=== PATIENT | male | born 1930 | race Caucasian/White ===

== ENCOUNTER 2017-11-28 09:20 | Emergency (ER) | payer MEDICARE ==
--- NOTE | 2017-11-28 10:13 | Emergency Department Record ---
History of Present Illness - General Chief complaint: Rash Stated complaint: CELLULITIS FACE AND BOTH LEGS Time Seen by Provider: 11/28/17 10:00 Source: Patient Mode of Arrival: Ambulatory Limitations: No limitations - History of Present Illness Initial comments: The patient has had a rash to his legs for about a month and now it has spread to the area around the L eye minimally. He states it is very itchy at times. There is no hx of unusual plant exposure or new medicines. The patient did go to an 6 days ago and was treated with Keflex for Cellulitis and also did receive a Steroid shot. He denies any fever, pain, nausea or vomiting. MD complaint: Rash Onset/Timin -: Month(s) Hx Tetanus Toxoid Vaccination: Yes Year of Tetanus Vaccination: 2013 Patient Tetanus UTD (within 5 yrs): Yes Location: Face, LLE, RLE Severity: Moderate Quality: Other Associated symptoms: Itching Treatments Prior to Arrival: Antibiotic, OTC topical medication - Related Data Home Medications Medication Instructions Recorded Confirmed Last Taken Cephalexin [Keflex] 500 mg PO TID 11/28/17 11/28/17 11/28/17 Lisinopril [Prinivil] 10 mg PO DAILY 11/28/17 11/28/17 11/28/17 Triamterene/Hydrochlorothiazid 1 udcap PO DAILY 11/28/17 11/28/17 11/28/17 [Dyazide] Previous Rx's Medication Instructions Recorded Prednisone [Prednisone 20Mg] 20 mg PO ASDIR #15 tab 11/28/17 Allergies Allergy/AdvReac Type Severity Reaction Status Date / Time No Known Drug Allergies Allergy Verified 11/28/17 09:46 Travel Screening - Travel/Exposure Within Last 30 Days Have you traveled within the last 30 days?: No - Travel/Exposure Within Last Year Have you traveled outside the [place] in the last year?: No - Additonal Travel Details Have you been exposed to anyone with a communicable illness?: No - Travel Symptoms Symptom Screening: None Review of Systems Constitutional: Denies: Chills, Fever Eyes: Denies: Eye discharge ENT: Denies: Congestion Respiratory: Denies: Cough, Dyspnea Past Medical History - SOCIAL HISTORY Smoking Status: Former smoker Alcohol Use: Occasional Alcohol Use Comment: Wine at dinner Drug Use: None - RESPIRATORY Hx Respiratory Disorders: No - CARDIOVASCULAR Hx Cardio Disorders: Yes Hx Hypertension: Yes - NEURO Hx Neuro Disorders: No - GI Hx GI Disorders: No - Hx Genitourinary Disorders: No - ENDOCRINE Hx Endocrine Disorders: No - MUSCULOSKELETAL Hx Musculoskeletal Disorders: No - PSYCH Hx Psych Problems: No - HEMATOLOGY/ONCOLOGY Hx Hematology/Oncology Disorders: Yes Hx Cancer: Yes (skin) Family Medical History Any Significant Family History?: No Physical Exam - General General Appearance: Alert, Oriented x3, Cooperative, No acute distress - Head Head exam: Atraumatic, Normocephalic, Normal inspection - Eye Eye exam: PERRL, EOMI, Periorbital swelling (There is mild swelling around the L eye with no warmth or tenderness.). negative: Normal appearance, Conjunctival injection - ENT Throat exam: Normal inspection. negative: Tonsillar erythema, Tonsillar exudate - Neck Neck exam: Normal inspection, Full ROM. negative: Tenderness - Respiratory Respiratory exam: Normal lung sounds bilaterally. negative: Respiratory distress - Cardiovascular Cardiovascular Exam: Regular rate, Normal rhythm, Normal heart sounds - Extremities Extremities exam: negative: Normal inspection (There is a scattered macular papular weeping rash to the anterior lower legs R>L. There is no warmth or tenderness.) Course Vital Signs 11/28/17 09:49 Temperature 97.9 F Pulse Rate 63 Respiratory 18 Rate Blood Pressure 167/68 Pulse Ox 96 - Reevaluation(s) Reevaluation #1: The patient is doing well at this time. I did discuss the dermatitis and the fact that I felt it is allergix in origin. He is to stop the keflex and start the Prednisone and Zyrtec. 11/28/17 11:01 Medical Decision Making - Data Complexity MDM Data: Labs Ordered and/or Reviewed - Lab Data Result diagrams: 11/28/17 10:18 11/28/17 10:18 Disposition Disposition: Discharge Clinical Impression: Dermatitis Disposition: Home, Self-Care Condition: (2) Stable Instructions: Acute Rash (ED) Additional Instructions: Please take your home Zyrtec and start the Prednisone tomorrow. Please return to the ER for any worsening symptoms, or pain, fever, or vomiting. Prescriptions: Prednisone [Prednisone 20Mg] 20 mg PO ASDIR #15 tab Forms: Patient Portal Access Time of Disposition: 11:05 Quality - Quality Measures Quality Measures: N/A - Blood Pressure Screening View Details: Yes Does Patient Have Any of the Following: No Blood Pressure Classification: Hypertensive Reading Systolic Measurement: 167 Diastolic Measurement: 68 Screening for High Blood Pressure: < First Hypertensive BP, F/U Documented > [ G8950] First Hypertensive Follow-up Interventions: Referral to alternative/primary care provider.
[2017-11-28 10:23] LABS: BASO % 0.2 % (0-6); EOS % 12.5 % (0-6); GRAN % 59.8 % (47-80); HEMATOCRIT 41.4 % (42.0-52.0); LYMPH % 14.2 % (16-45); MEAN CELL VOLUME 101.2 fl (81-97); MEAN CORPUSCULAR HEMOGLOBIN 34.2 pg (27-33); MEAN CORPUSCULAR HGB CONC 33.8 g/dl (32-36); MEAN PLATELET VOLUME 9.5 fl (7.4-10.4); MONO % 13.3 % (0-9); PLATELET COUNT 211 K/uL (130-400); RED BLOOD COUNT 4.09 M/uL (4.40-5.70); WHITE BLOOD COUNT W/O DIFF 8.6 K/uL (4.2-12.2)
[2017-11-28 10:38] LABS: BLOOD UREA NITROGEN 25 mg/dL (8-23); CREATININE 1.1 mg/dL (0.7-1.2); EST GLOMERULAR FILTRATION RATE > 60 mL/min; TOTAL PROTEIN 6.7 g/dL (6.6-8.7)
[2017-11-28 10:40] LABS: GLUCOSE,RANDOM 81 mg/dL (74-109)
[2017-11-28 10:43] LABS: ALB/GLOB RATIO 1.2 (1.1-1.8); ALBUMIN 3.7 g/dL (4.0-5.0); ALKALINE PHOSPHATASE 77 U/L (40-129); ALT/SGPT 12 U/L (<41); AST/SGOT 18 U/L (10.0-50.0); C-REACTIVE PROTEIN 0.19 mg/dL (<0.5)
[2017-11-28] MEDS: METHYLPREDNISOLONE PF 125MG/VIAL IM ONE (11:02)
== END 2017-11-28 11:12 | disposition home or self-care (01) ==
LOC: ER 09:20
DX: L30.8 Other specified dermatitis (principal); I10 Essential (primary) hypertension; Z87.891 Personal history of nicotine dependence
CPT/HCPCS: 80053; 85025; 86140; 96372; 99283; J2930

== ENCOUNTER 2018-02-24 17:24 | Emergency (ER) | payer MEDICARE ==
[2018-02-24] MEDS ORDERED: SODIUM CHLORIDE 0.9% 500 ML IV ONE (17:47)
--- NOTE | 2018-02-24 18:02 | Emergency Department Record ---
History of Present Illness - General Chief Complaint: Abdominal Pain Stated Complaint: LT SIDE ABDOMINAL PAIN Time Seen by Provider: 02/24/18 17:44 Source: Patient Mode of Arrival: Ambulatory Limitations: No limitations - History of Present Illness Initial Comments: The patient is here due to L sided AP for the last 8-9 hours. The pain is a sharp stabbing L sided mid abdominal pain that is intermittent. It was coming and going every 20-30 minutes at the onset but that increased in frequency this afternoon. There was no nausea, vomiting, diarrhea, dysuria, fever, or back pain associated with the pain. Now for the last hour the pain has resolved. The patient denies any hx of similar problems and also denies any recent illnesses. His only abdominal surgery was a R inguinal hernia many years ago. MD Complaint: Abdominal pain Onset/Timin -: Days(s) Location: [facility] Radiation: None Migration to: No migration Quality: Sharp Consistency: Intermittent Improves With: Nothing Worsens With: Nothing Associated Symptoms: Denies other symptoms - Related Data Home Medications Medication Instructions Recorded Confirmed Last Taken Amlodipine Besylate 2.5 mg PO DAILY 02/24/18 02/24/18 Unknown Atorvastatin Calcium [Lipitor] 20 mg PO DAILY 02/24/18 02/24/18 Unknown Carvedilol 6.25 mg PO DAILY 02/24/18 02/24/18 Unknown Doxazosin Mesylate [Cardura] 2 mg PO DAILY 02/24/18 02/24/18 Unknown Allergies Allergy/AdvReac Type Severity Reaction Status Date / Time atorvastatin [From Lipitor] AdvReac sun Verified 02/24/18 17:43 sensitivity lisinopril AdvReac sun Verified 02/24/18 17:43 sensitivity Travel Screening - Travel/Exposure Within Last 30 Days Have you traveled within the last 30 days?: No Review of Systems Constitutional: Denies: Chills, Fever Eyes: Denies: Eye discharge ENT: Denies: Congestion Respiratory: Denies: Cough, Dyspnea Cardiovascular: Denies: Arrhythmia Endocrine: Denies: Fatigue Gastrointestinal: Reports: Abdominal pain. Denies: Diarrhea, Nausea, Vomiting Genitourinary: Denies: Hematuria Musculoskeletal: Denies: Back pain Skin: Denies: Bruising Past Medical History - SOCIAL HISTORY Smoking Status: Former smoker Alcohol Use: Occasional Drug Use: None - RESPIRATORY Hx Respiratory Disorders: No - CARDIOVASCULAR Hx Cardio Disorders: Yes Hx Hypertension: Yes Comment:: high cholesterol - NEURO Hx Neuro Disorders: Yes Hx CVA: Yes - GI Hx GI Disorders: No - Hx Genitourinary Disorders: No - ENDOCRINE Hx Endocrine Disorders: No - MUSCULOSKELETAL Hx Musculoskeletal Disorders: No - PSYCH Hx Psych Problems: No - HEMATOLOGY/ONCOLOGY Hx Hematology/Oncology Disorders: Yes Hx Cancer: Yes (skin) Family Medical History Any Significant Family History?: No Physical Exam - General General Appearance: Alert, Oriented x3, Cooperative, No acute distress - Head Head exam: Atraumatic, Normocephalic, Normal inspection - Eye Eye exam: Normal appearance, PERRL - Neck Neck exam: Normal inspection, Full ROM. negative: Tenderness - Respiratory Respiratory exam: Normal lung sounds bilaterally. negative: Respiratory distress - Cardiovascular Cardiovascular Exam: Regular rate, Normal rhythm, Normal heart sounds - GI/Abdominal GI/Abdominal exam: Soft, Distended (mildly.). negative: Normal bowel sounds, Diminished bowel sounds, Guarding, Rebound, Rigid, Tenderness - Extremities Extremities exam: Normal inspection, Full ROM, Normal capillary refill. negative: Tenderness - Back Back exam: Reports: Normal inspection - Neurological Neurological exam: Alert, Normal gait. negative: Abnormal gait, Motor sensory deficit Course Vital Signs 02/24/18 17:38 Temperature 97.7 F Pulse Rate 70 Respiratory 20 Rate Blood Pressure 149/78 Pulse Ox 97 - Reevaluation(s) Reevaluation #1: The patient is doing very well at this time. He is resting comfortably with no pain or discomfort. I did discuss the mildly elevated Lipase with him and the urinary tract infection. We will give him a dose of Rocephin in the IV and then an Abx for home. 02/24/18 18:36 Reevaluation #2: The patient's care will be turned over to Dr. Lopez at 7pm due to shift change. 02/24/18 18:48 Medical Decision Making - Lab Data Result diagrams: 02/24/18 18:00 02/24/18 18:00 Disposition Forms: Patient Portal Access Quality - Quality Measures Quality Measures: N/A - Blood Pressure Screening View Details: Yes Does Patient Have Any of the Following: Active Dx of HTN Blood Pressure Classification: Hypertensive Reading Systolic Measurement: 149 Diastolic Measurement: 78 Screening for High Blood Pressure: Patient Exclusion, Hx of HTN [G9744]
[2018-02-24 18:11] LABS: BASO % 0.2 % (0-6); EOS % 8.1 % (0-6); HEMATOCRIT 40.4 % (42.0-52.0); HEMOGLOBIN 13.9 gm/dl (14.0-18.0); LYMPH % 19.2 % (16-45); MEAN CELL VOLUME 101.8 fl (81-97); MEAN CORPUSCULAR HGB CONC 34.4 g/dl (32-36); MEAN PLATELET VOLUME 9.5 fl (7.4-10.4); MONO % 14.5 % (0-9); PLATELET COUNT 235 K/uL (130-400); RED BLOOD COUNT 3.97 M/uL (4.40-5.70); RED CELL DISTRIBUTION WIDTH 13.8 % (11.5-14.5); WHITE BLOOD COUNT W/O DIFF 8.7 K/uL (4.2-12.2)
[2018-02-24 18:12] LABS: URINE BILIRUBIN NEGATIVE (NEGATIVE); URINE BLOOD NEGATIVE (NEGATIVE); URINE COLOR YELLOW; URINE GLUCOSE (UA) NEGATIVE (NEGATIVE); URINE KETONE NEGATIVE (NEGATIVE); URINE LEUKOCYTE ESTERASE MODERATE (NEGATIVE); URINE NITRITE NEGATIVE (NEGATIVE); URINE PROTEIN NEGATIVE (NEGATIVE); URINE UROBILINOGEN 0.2 E.U./dL (0.20 - 1.00)
[2018-02-24 18:23] LABS: URINE APPEARANCE SL CLOUDY
[2018-02-24 18:24] LABS: URINE EPITHELIAL CELLS 0 - 2 (FEW); URINE RBC 0 - 2 (NONE SEEN); URINE WBC 16 - 20 (0-2/hpf)
[2018-02-24 18:25] LABS: BLOOD UREA NITROGEN 24 mg/dL (8-23); CREATININE 1.1 mg/dL (0.7-1.2); EST GLOMERULAR FILTRATION RATE > 60 mL/min; URINE BACTERIA 3+
[2018-02-24 18:28] LABS: GLUCOSE,RANDOM 91 mg/dL (74-109)
[2018-02-24 18:30] LABS: ALT/SGPT 27 U/L (<41)
[2018-02-24 18:31] LABS: ALKALINE PHOSPHATASE 88 U/L (40-129); AST/SGOT 26 U/L (10.0-50.0); BILIRUBIN,DIRECT < 0.2 mg/dL (0-0.3); LIPASE 103 U/L (13-60)
[2018-02-24] MEDS ORDERED: CEFTRIAXONE SODIUM 1 GM in 0.9 % SODIUM CHLORIDE 100ML 100 ML IVPB ONE (18:33)
--- NOTE | 2018-02-24 19:29 | Emergency Department Record ---
History of Present Illness - General Chief Complaint: Abdominal Pain Stated Complaint: LT SIDE ABDOMINAL PAIN Time Seen by Provider: 02/24/18 17:44 Source: Patient Mode of Arrival: Ambulatory Limitations: No limitations - History of Present Illness MD Complaint: Abdominal pain Onset/Timin -: Days(s) Location: [facility] Radiation: None Migration to: No migration Quality: Sharp Consistency: Intermittent Improves With: Nothing Worsens With: Nothing Associated Symptoms: Denies other symptoms - Related Data Home Medications Medication Instructions Recorded Confirmed Last Taken Amlodipine Besylate 2.5 mg PO DAILY 02/24/18 02/24/18 Unknown Atorvastatin Calcium [Lipitor] 20 mg PO DAILY 02/24/18 02/24/18 Unknown Carvedilol 6.25 mg PO DAILY 02/24/18 02/24/18 Unknown Doxazosin Mesylate [Cardura] 2 mg PO DAILY 02/24/18 02/24/18 Unknown Previous Rx's Medication Instructions Recorded Ciprofloxacin HCl [Cipro] 500 mg PO Q12HR #14 tablet 02/24/18 Allergies Allergy/AdvReac Type Severity Reaction Status Date / Time atorvastatin [From Lipitor] AdvReac sun Verified 02/24/18 17:43 sensitivity lisinopril AdvReac sun Verified 02/24/18 17:43 sensitivity Travel Screening - Travel/Exposure Within Last 30 Days Have you traveled within the last 30 days?: No Review of Systems Constitutional: Denies: Chills, Fever Eyes: Denies: Eye discharge ENT: Denies: Congestion Respiratory: Denies: Cough, Dyspnea Cardiovascular: Denies: Arrhythmia Endocrine: Denies: Fatigue Gastrointestinal: Reports: Abdominal pain. Denies: Diarrhea, Nausea, Vomiting Genitourinary: Denies: Hematuria Musculoskeletal: Denies: Back pain Skin: Denies: Bruising Past Medical History - SOCIAL HISTORY Smoking Status: Former smoker Alcohol Use: Occasional Drug Use: None - RESPIRATORY Hx Respiratory Disorders: No - CARDIOVASCULAR Hx Cardio Disorders: Yes Hx Hypertension: Yes Comment:: high cholesterol - NEURO Hx Neuro Disorders: Yes Hx CVA: Yes - GI Hx GI Disorders: No - Hx Genitourinary Disorders: No - ENDOCRINE Hx Endocrine Disorders: No - MUSCULOSKELETAL Hx Musculoskeletal Disorders: No - PSYCH Hx Psych Problems: No - HEMATOLOGY/ONCOLOGY Hx Hematology/Oncology Disorders: Yes Hx Cancer: Yes (skin) Family Medical History Any Significant Family History?: No Physical Exam - General Limitations: No limitations Course Vital Signs 02/24/18 17:38 Temperature 97.7 F Pulse Rate 70 Respiratory 20 Rate Blood Pressure 149/78 Pulse Ox 97 - Reevaluation(s) Reevaluation #1: The case was signed out by Dr Brady at the bedside The labs and UA were reviewed The patient has labs consistent with UTI Rocephin was given The patient was examined. He is currently pain free and non tender. 02/24/18 18:50 02/24/18 20:35 CT demonstrates a significantly enlarged bladder otherwise no acute process. Incidental bladder diverticulum Bladder noted to be significantly enlarged. He has a remote history of BPH. He does void small amounts. Bladder scan to high to read volume. Recommend bravo. He has had have one in the past. 02/24/18 21:11 The patient tolerated the bravo well DC with urology follow up referral We discussed reasons to return and home care. Medical Decision Making - Lab Data Result diagrams: 02/24/18 18:00 02/24/18 18:00 Lab Results 02/24/18 02/24/18 02/24/18 Range/Units 18:00 18:00 18:00 WBC 8.7 (4.2-12.2) K/uL RBC 3.97 L (4.40-5.70) M/uL Hgb 13.9 L (14.0-18.0) gm/dl Hct 40.4 L (42.0-52.0) % MCV 101.8 H (81-97) fl MCH 35.0 H (27-33) pg MCHC 34.4 (32-36) g/dl RDW 13.8 (11.5-14.5) % Plt Count 235 (130-400) K/uL MPV 9.5 (7.4-10.4) fl Gran % 58.0 (47-80) % Lymphocytes % 19.2 (16-45) % Monocytes % 14.5 H (0-9) % Eosinophils % 8.1 H (0-6) % Basophils % 0.2 (0-6) % Sodium 136 (136-145) mmol/L Potassium 3.6 (3.4-4.5) mmol/L Chloride 97 L (98-107) mmol/L Carbon Dioxide 26.0 (22-29) mmol/L Anion Gap 13.0 (7-16) BUN 24 H (8-23) mg/dL Creatinine 1.1 (0.7-1.2) mg/dL Estimated GFR > 60 mL/min Random Glucose 91 (74-109) mg/dL Calcium 9.0 (8.8-10.2) mg/dL Total Bilirubin 0.60 (0.2-1.0) mg/dL Direct Bilirubin < 0.2 (0-0.3) mg/dL AST 26 (10.0-50.0) U/L ALT 27 (<41) U/L Alkaline Phosphatase 88 (40-129) U/L Total Protein 7.0 (6.6-8.7) g/dL Albumin 4.0 (4.0-5.0) g/dL Lipase 103 H (13-60) U/L Urine Color Yellow Urine Appearance Sl cloudy Urine pH 6.0 (5.0-8.0) Ur Specific [place] 1.010 (1.002-1.030) Urine Protein Negative (NEGATIVE) Urine Glucose (UA) Negative (NEGATIVE) Urine Ketones Negative (NEGATIVE) Urine Blood Negative (NEGATIVE) Urine Nitrite Negative (NEGATIVE) Urine Bilirubin Negative (NEGATIVE) Urine Urobilinogen 0.2 (0.20 - 1.00) E.U./dL Ur Leukocyte Esterase Moderate H (NEGATIVE) Urine RBC 0 - 2 (NONE SEEN) Urine WBC 16 - 20 (0-2/hpf) Ur Epithelial Cells 0 - 2 (FEW) Urine Bacteria 3+ Disposition Disposition: Discharge Clinical Impression: Urinary tract infection Qualifiers: Urinary tract infection type: acute cystitis Hematuria presence: without hematuria Qualified Code(s): N30.00 - Acute cystitis without hematuria Disposition: Home, Self-Care Condition: (1) Good Instructions: Urinary Tract Infection in Men (ED), Bravo Catheter Placement and Care (ED) Additional Instructions: You have been referred to the Urology Specialty clinic for the urinary retention Return to the ER if you have fever, pain, bravo catheter issues or concerns Call your family doctor tomorrow for close follow up this ER visit to review the tests and results Take the antibiotics as directed Prescriptions: Ciprofloxacin HCl [Cipro] 500 mg PO Q12HR #14 tablet Referrals: TIMOTHY JOHNSTON M.D. [MEDICAL DOCTOR] - [facility] Special[facility] [Provider Group] Forms: Patient Portal Access Time of Disposition: 21:10 Quality - Quality Measures Quality Measures: N/A - Blood Pressure Screening Does Patient Have Any of the Following: Active Dx of HTN Blood Pressure Classification: Pre-Hypertensive BP Reading Systolic Measurement: 128 Diastolic Measurement: 74 Screening for High Blood Pressure: Patient Exclusion, Hx of HTN [G9744] Pre-Hypertensive Follow-up Interventions: Referral to alternative/primary care provider.
--- NOTE | 2018-02-26 13:55 | CT SCAN REPORT ---
EXAM: CT OF THE ABDOMEN AND PELVIS WITH IV CONTRAST HISTORY: LEFT UPPER ABDOMINAL PAIN TODAY. TECHNIQUE: Helical CT scan of the abdomen and pelvis was obtained after the administration of intravenous contrast, 100 ml of Omnipaque 300. Delayed images were obtained through the kidneys. Oral contrast was also administered. Comparison: None. FINDINGS: The lung bases show minimal atelectasis adjacent to the diaphragms. Small hiatal hernia. The liver has normal size. The spleen has normal size. A couple tiny low density lesions measuring up 1 cm are likely cysts. The gallbladder is mildly distended, no calcified stones. The common bile duct is not dilated. The pancreas has a few calcifications from previous pancreatitis. No acute inflammatory changes. No renal calculi. There is mild dilatation of both renal collecting systems. Subcentimeter low density lesions are present in both kidneys, likely cysts, although too small to adequately characterize. The bowel has normal caliber. The appendix is normal. There are a few colonic diverticula, no acute inflammatory change. The urinary bladder is severely distended, it extends above the umbilicus. The diverticulum is present posteriorly that measures 3.7 cm. The prostate gland is mildly enlarged, protrudes into the bladder base. No ascites or adenopathy. Moderate calcifications of the abdominal aorta, without aneurysm. The distal left common iliac artery is mildly dilated, 18 mm. The distal right common iliac artery is 16 mm. Review of the bones shows advanced degenerative changes of the lumbar spine with disk space narrowing and osteophytosis. No bone lesions. IMPRESSION: SEVERELY DISTENDED URINARY BLADDER. 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 MILD BILATERAL HYDRONEPHROSIS IS PRESENT, LIKELY ON THE BASIS OF REFLUX NEPHROPATHY. NO RENAL CALCULI. JOB NUMBER: [id number] [facility]
== END 2018-02-24 21:41 | disposition home or self-care (01) ==
LOC: ER 17:24
DX: N30.00 Acute cystitis without hematuria (principal); R10.32 Left lower quadrant pain; R74.8 Abnormal levels of other serum enzymes; I10 Essential (primary) hypertension; Z87.891 Personal history of nicotine dependence; Z86.73 Personal history of transient ischemic attack (TIA), and cerebral infarction without residual deficits
CPT/HCPCS: 74177; 80048; 80076; 81001; 83690; 85025; 96365; 99284